=== PATIENT | female | born 1945 | race Caucasian/White ===

== ENCOUNTER 2019-09-05 15:03 | Inpatient (IN) | payer OTHER, MEDICARE ==
--- NOTE | 2019-09-05 15:17 | PDOC ---
Rapid Medical Evaluation Time Seen by Provider: 09/05/19 15:12 Medical Evaluation: 09/05/19 15:13 Pt presents to the ER for abnormal blood work. Was sent by Dr. Rocha for elevated liver enzymes. Denies pain. Admits to feeling weak and off balance. Dr. Rocha requesting phone call per patient to discuss case. She states she is requiring a walker since the weakness started. Exam: ambulatory with walker. No evidence of jaundice Orders: labs, IV Pt to proceed to the ER for further evaluation Discharge Disposition - Diagnosis Abnormal laboratory test result - Referrals - Patient Instructions - Post Discharge Activity
--- NOTE | 2019-09-05 15:56 | PDOC ---
History of Present Illness - General Chief Complaint: Abnormal Lab Results (Outside) Stated Complaint: SENT BY PCP/ ABN. LABS Time Seen by Provider: 09/05/19 15:12 - History of Present Illness Initial Comments: The pt is a 73F w/ a history of HTN, HLD, distant tobacco and EtOH abuse who presents for evaluation of 3 months of progressive weakness, weight loss, and transaminitis who presents for further evaluation and workup. She states that when the transaminitis was first discovered, initially it was thought to be medication related. Her medication regimen has been altered without resolution. She reports unintentional weight loss, decreased PO intake (decreased appetite) , generalized fatigue/weakness, frequent nausea. 09/05/19 17:00 Past History - Past Medical History Allergies/Adverse Reactions: Allergies Allergy/AdvReac Type Severity Reaction Status Date / Time olmesartan [From Benicar] AdvReac Itching Verified 09/05/19 15:13 Home Medications: Ambulatory Orders Aspirin 81 mg PO DAILY 09/05/19 Esomeprazole Magnesium [Nexium 24Hr] 40 mg PO DAILY 09/05/19 Metoprolol Succinate 100 mg PO DAILY 09/05/19 CVA: Yes (2013) COPD: No HTN: Yes Hypercholesterolemia: Yes - Surgical History Cholecystectomy: Yes - Psycho Social/Smoking Cessation Hx Smoking History: Former smoker Have you smoked in the past 12 months: No Information on smoking cessation initiated: No Hx Alcohol Use: No Drug/Substance Use Hx: No Review of Systems - Review of Systems Able to Perform ROS?: Yes Comments:: GENERAL/CONSTITUTIONAL: No fever or chills HEAD, EYES, EARS, NOSE AND THROAT: No change in vision. No change in hearing. No sore throat CARDIOVASCULAR: No chest pain or shortness of breath RESPIRATORY: Denies cough, hemoptysis GASTROINTESTINAL: No vomiting, diarrhea or constipation GENITOURINARY: No dysuria, frequency, or change in urination MUSCULOSKELETAL: No joint or muscle swelling or pain. No neck or back pain SKIN: No rash NEUROLOGIC: No headache, vertigo, loss of consciousness, or change in strength/ sensation ENDOCRINE: 20lbs unintentional weight loss HEMATOLOGIC/LYMPHATIC: No anemia, easy bleeding, or history of blood clots ALLERGIC/IMMUNOLOGIC: No hives or skin allergy 09/05/19 15:56 Is the patient limited Ukrainian proficient: No *Physical Exam - Vital Signs Last Vital Signs Temp Pulse Resp BP Pulse Ox 98.5 F 69 18 137/66 97 09/05/19 15:14 09/05/19 15:14 09/05/19 15:14 09/05/19 15:14 09/05/19 15:14 - Physical Exam GENERAL: Awake, alert, and oriented to person/place/time, in no acute distress HEAD: No signs of trauma, normocephalic, atraumatic EYES: PERRLA, EOMI, sclera anicteric, conjunctiva clear ENT: Hearing grossly normal, nares patent, oropharynx clear without exudates. No uvular deviation. Dry mucosa LUNGS: No distress, speaks in full sentences, clear to auscultation bilaterally HEART: Regular rate and rhythm, normal S1 and S2, no murmurs appreciated, peripheral pulses normal and equal bilaterally ABDOMEN: Soft, nontender, normoactive bowel sounds. No guarding, no rebound EXTREMITIES: Normal inspection, Normal range of motion, no edema. No clubbing or cyanosis NEUROLOGICAL: Cranial nerves II through XII grossly intact. Normal speech, normal gait, no focal sensorimotor deficits SKIN: Warm, Dry 09/05/19 15:56 ED Treatment Course - LABORATORY CBC & Chemistry Diagram: 09/05/19 15:42 09/05/19 15:42 - RADIOLOGY Radiograph Interpretation: CT CAP w/ IV contrast IMPRESSION: Status post cholecystectomy. There appears to be a subtle 0.7 cm opacity within the common bile duct at the level of the ampulla which may represent a calculus or polypoid lesion. Confirmation and further evaluation utilizing MRI/MRCP may be performed. Mild extrahepatic and intrahepatic biliary tract dilatation is noted. A 0.5 x 0.3 cm pancreatic hypodense focus is seen within the body adjacent to the tail possibly representing a cyst or incidental focal fatty deposition. MRI/ MRCP evaluation may also be performed in this regard. Probable 4 x 3 cm duodenal diverticulum. There is equivocal mild focal wall thickening along the left lateral aspect of the rectum. Correlate with colonoscopy. Diffuse hepatic steatosis. Colonic diverticulosis. Solitary 0.3 cm right lower lobe pulmonary nodule which is of doubtful clinical significance. Correlate with 3 month follow-up CT. Possible mild cardiomegaly. Minimal to mild chronic L3 vertebral body compression fracture. L1 vertebral body hemangioma. 09/05/19 23:48 Medical Decision Making - Medical Decision Making The pt is a 73F w/ a history of HTN, HLD, distant tobacco and EtOH abuse who presents for evaluation of 3 months of progressive weakness, weight loss, and transaminitis who presents for further evaluation and workup. Labs sent ECG Case discussed with Dr. Benoit, will obtain CT CAP IVF 09/05/19 17:49 ECG w/ NSR: HR 66; QTc 408; no axis deviation; TWI V2-V3; no DONNA; abn ecg Transaminitis noted No leukocytosis No anemia Lytes unremarkable No PATEL CT CAP w/ evidence of CBD/pancreatic nodules/lesions otherwise overall w/o acute pathology Plan for admission for further evaluation of transaminitis/investigation of possible malignancy Pt signed out to [facility] Admitting Discharge - Discharge Information Problems reviewed: Yes Clinical Impression/Diagnosis: Abnormal laboratory test result, Transaminitis Condition: Stable - Admission Yes - Follow up/Referral - Patient Discharge Instructions - Post Discharge Activity
[2019-09-05 16:05] LABS: BASO % 1.5 % (0-2.0); EOS % 3.4 % (0-4.5); HEMATOCRIT 42.5 % (32.4-45.2); HEMOGLOBIN 14.5 GM/dL (10.7-15.3); LYMPH % 21.7 % (8-40); MCHC 34.2 g/dl (32.0-36.0); MEAN CELL VOLUME 90.6 fl (80-96); MONO % 8.9 % (3.8-10.2); NEUT % 64.5 % (42.8-82.8); PLATELET COUNT 338 K/MM3 (134-434); RBC 4.69 M/mm3 (3.60-5.2); RDW 13.9 % (11.6-15.6); WHITE BLOOD COUNT 7.7 K/mm3 (4.0-10.0)
[2019-09-05 16:19] LABS: INR 1.43 (0.83-1.09); PROTHROMBIN TIME (PATIENT) 16.9 SEC (9.7-13.0)
[2019-09-05 16:43] LABS: ALBUMIN 3.1 g/dl (3.4-5.0); BILIRUBIN,TOTAL 3.2 mg/dL (0.2-1); BLOOD UREA NITROGEN 18.3 mg/dL (7-18); CALCIUM 9.1 mg/dL (8.5-10.1); CREATININE 0.9 mg/dL (0.55-1.3); POTASSIUM 3.7 mmol/L (3.5-5.1); TOT PROT 7.1 g/dl (6.4-8.2)
[2019-09-05] MEDS ORDERED: SODIUM CHLORIDE 0.9% 500 ML INFUS.BAG IV ONE (17:40)
--- NOTE | 2019-09-05 18:56 | PDOC ---
Documentation entered by Jillian Paniagua SCRIBE, acting as scribe for Vahe Wong MD. Vahe Wong MD: This documentation has been prepared by the Arcelia sims Torie, SCRIBE, under my direction and personally reviewed by me in its entirety. I confirm that the documentation accurately reflects all work, treatment, procedures, and medical decision making performed by me. Attending Attestation - Resident Resident Name: MyrtlebellaBonnieNey - ED Attending Attestation I have performed the following: I have examined & evaluated the patient, The case was reviewed & discussed with the resident, I agree w/resident's findings & plan, Exceptions are as noted - HPI HPI: 09/05/19 16:48 Patient is a 73 year old female with a significant medical history of HTN, HLD, stroke (2013) and is a chronic smoker who presents to the ED with general malaise. Patient fell two days ago and hit her head on the side of the TV. Patient claims she didnt lose consciousness, notes occasional nausea but no vomiting, and states that her urine has been brown for the past month. Patient remarked that she doesnt feel like herself. Patient was sent in by PCP for abnormal LFT. Denies: Social HX: Drank most of her life but reports not smoking or drinking since 2013 PCP: Frankie Rocha - Physicial Exam PE: 09/05/19 19:18 Vitals: Triage Vital signs reviewed General Appearance: No acute distress, well nourished well developed, Head: Atraumatic, Cardiac: Regular rate and rhythym, no murmurs, no rubs, no gallops, Lungs: Clear to auscultation bilateral, good air movement bilaterally, Abdomen: Soft, non distended, normal bowel sounds, non tender to palpation Extremities: Full range of motion to all extremities, no cyanosis, clubbing, or edema Skin: Warm and dry, no rashes or lesions, no rash, no petechiae Psych: Normal mood, normal affect - Medical Decision Making 09/05/19 19:18 73 years old with worsening LFTs and bilirubin cussed with Dr. Roper will CT chest abdomen pelvis and admit possible MRI and GI intervention tomorrow
[2019-09-05] MEDS: SODIUM CHLORIDE 0.45% 1,000 ML IV SCH (20:37)
--- NOTE | 2019-09-05 21:04 | HP ---
CHIEF COMPLAINT: brought in by PCP for abnormal blood work PCP:Dr. Rocha Gastroenterology: Dr. Benoit HISTORY OF PRESENT ILLNESS: 73 year old female with a significant medical history of HTN, HLD, stroke (2013 ) with reght sided weakness and a chronic smoker who presents to the ED with general malaise. As reported she fell two days ago and hit her head on the side of the TV . There was no loss of consciousness. She reports occasional nausea but no vomiting, and states that her urine has been brown for the past month. She denies abdominal pain, diarrhea, constipation, chest pain or shortness of breath. Patient reported she does not feel like her usual self. Patient was sent in by PCP for abnormal LFT's. She reported she was taken off her statin therapy a few weeks ago. ER course was notable for: (1)transaminitis/elevated bilrubin (total bilirubin 3.2, [id number],alk phos 673, INR 1.43, platelet 338) (2) CT scan of chest, abdomen and pelvis with a fatty liver, no masses, lymphadenopathy, 0.7cm opacity in common bile duct representing calculus versus polypoid lesion, mild common duct dilatation Recent Travel: no PAST MEDICAL HISTORY: hypertension hyperlipidemia CAV with right sided weakness PAST SURGICAL HISTORY: cholecystectomy Social History: Smoking:current smoker Alcohol:no Drugs: no Allergies [facility] Adverse Reaction (Verified 09/05/19 15:13) Itching HOME MEDICATIONS: Home Medications Medication Instructions Recorded Aspirin 81 mg PO DAILY 09/05/19 Esomeprazole Magnesium [Nexium 40 mg PO DAILY 09/05/19 24Hr] Metoprolol Succinate 100 mg PO DAILY 09/05/19 REVIEW OF SYSTEMS CONSTITUTIONAL: Absent: fever, chills, diaphoresis, generalized weakness, malaise, loss of appetite, weight change HEENT: Absent: rhinorrhea, nasal congestion, throat pain, throat swelling, difficulty swallowing, mouth swelling, ear pain, eye pain, visual changes CARDIOVASCULAR: Absent: chest pain, syncope, palpitations, irregular heart rate, lightheadedness , peripheral edema RESPIRATORY: Absent: cough, shortness of breath, dyspnea with exertion, orthopnea, wheezing, stridor, hemoptysis GASTROINTESTINAL: Absent: abdominal pain, abdominal distension, nausea, vomiting, diarrhea, constipation, melena, hematochezia GENITOURINARY: Absent: dysuria, frequency, urgency, hesitancy, hematuria, flank pain, genital pain MUSCULOSKELETAL: Absent: myalgia, arthralgia, joint swelling, back pain, neck pain SKIN: Absent: rash, itching, pallor HEMATOLOGIC/IMMUNOLOGIC: Absent: easy bleeding, easy bruising, lymphadenopathy, frequent infections ENDOCRINE: Absent: unexplained weight gain, unexplained weight loss, heat intolerance, cold intolerance NEUROLOGIC: Absent: headache, focal weakness or paresthesias, dizziness, unsteady gait, seizure, mental status changes, bladder or bowel incontinence PSYCHIATRIC: Absent: anxiety, depression, suicidal or homicidal ideation, hallucinations. PHYSICAL EXAMINATION Vital Signs - 24 hr 09/05/19 09/05/19 15:14 20:47 Temperature 98.5 F 98.1 F Pulse Rate 69 Pulse Rate [ 72 Apical] Respiratory 18 20 Rate Blood Pressure 137/66 Blood Pressure 130/70 [Right Arm] O2 Sat by Pulse 97 100 Oximetry (%) GENERAL: awake, alert,fully oriented, no acute distress HEAD: normal EYES: pupils equal, round and reactive to light EARS, NOSE, THROAT: ears normal, nares patent, oropharynx clear without exudates NECK: normal LUNGS: breath sounds clear to auscultation bilaterally no wheezes no crackles no accessory muscle use HEART: regular rate and rhythm normal S1 and S2 ABDOMEN: soft nontender on light palpation nondistended nonicteric MUSCULOSKELETAL: normal range of motion UPPER EXTREMITIES: 2+ pulses warm well-perfused no cyanosis LOWER EXTREMITIES: 2+ pulses warm well-perfused no pitting edema NEUROLOGICAL: normal speech right sided upper and lower weakness, ambulates with walker no facial droop or grimace PSYCHIATRIC: cooperative good eye contact appropriate mood and affect SKIN: warm dry normal turgor no rashes or lesions noted Laboratory Results - last 24 hr 09/05/19 09/05/19 09/05/19 15:42 15:42 15:42 WBC 7.7 RBC 4.69 Hgb 14.5 Hct 42.5 MCV 90.6 MCH 31.0 MCHC 34.2 RDW 13.9 Plt Count 338 MPV 10.0 Absolute Neuts (auto) 4.9 Neutrophils % 64.5 Lymphocytes % 21.7 Monocytes % 8.9 Eosinophils % 3.4 Basophils % 1.5 Nucleated RBC % 0 PT with INR 16.90 H INR 1.43 H Sodium 141 Potassium 3.7 Chloride 113 H Carbon Dioxide 19 L Anion Gap 9 BUN 18.3 H Creatinine 0.9 Est GFR (CKD-EPI)AfAm 74.56 Est GFR (CKD-EPI)NonAf 64.33 Random Glucose 90 Calcium 9.1 Total Bilirubin 3.2 H AST 124 H ALT 160 H Alkaline Phosphatase 673 H Total Protein 7.1 Albumin 3.1 L Urine Color Urine Appearance Urine pH Ur Specific [place] Urine Protein Urine Glucose (UA) Urine Ketones Urine Blood Urine Nitrite Urine Bilirubin Urine Urobilinogen Ur Leukocyte Esterase Urine WBC (Auto) Urine RBC (Auto) Urine Casts (Auto) U Pathogenic Cast Auto U Epithel Cells (Auto) U Sm Round Cell (Auto) Urine Crystals (Auto) Urine Bacteria (Auto) Urine Yeast (Auto) 09/05/19 18:36 WBC RBC Hgb Hct MCV MCH MCHC RDW Plt Count MPV Absolute Neuts (auto) Neutrophils % Lymphocytes % Monocytes % Eosinophils % Basophils % Nucleated RBC % PT with INR INR Sodium Potassium Chloride Carbon Dioxide Anion Gap BUN Creatinine Est GFR (CKD-EPI)AfAm Est GFR (CKD-EPI)NonAf Random Glucose Calcium Total Bilirubin AST ALT Alkaline Phosphatase Total Protein Albumin Urine Color Cancelled Urine Appearance Cancelled Urine pH Cancelled Ur Specific [place] Cancelled Urine Protein Cancelled Urine Glucose (UA) Cancelled Urine Ketones Cancelled Urine Blood Cancelled Urine Nitrite Cancelled Urine Bilirubin Cancelled Urine Urobilinogen Cancelled Ur Leukocyte Esterase Cancelled Urine WBC (Auto) Cancelled Urine RBC (Auto) Cancelled Urine Casts (Auto) Cancelled U Pathogenic Cast Auto Cancelled U Epithel Cells (Auto) Cancelled U Sm Round Cell (Auto) Cancelled Urine Crystals (Auto) Cancelled Urine Bacteria (Auto) Cancelled Urine Yeast (Auto) Cancelled ASSESSMENT/PLAN: Mrs. Casas is a 73 year old female with a significant medical history of HTN , HLD, stroke (2013) with right sided weakness and ongoing tobacco use smoker who presents with general malaise and nausea. She was found to have transmintis and elevated bilirubin. She is being evaluated for further medical management and GI evaluation. #1 Transaminitis/Elevated Bilirubin symptomatic with nausea and malaise,no leukocytosis, afebrile, nonicteric, labs notable for total bilirubin 3.2, ast 124, alt 160, alk phos 673, platelets 338, INR 1.43. CT scan of chest, abdomen and pelvis with fatty liver, no masses or lymphadenopathy, 0.7cm opacity in common bile duct representing calculus versus polypoid lesion, mild common bile duct dilatation. --hepatitis panel pending , check amylase level --GI consulted- Dr. Benoit --Avoid Tylenol and statin therapy --Will keep patient NPO in anticipation for MRCP --IVF NS @75cc/hr #2 Hypertension controlled --continue with metoprolol #3 Hyperlipidemia statin on hold in setting of #1 #4 History of CVA --continue asa --statin on hold in setting of #1 FEN IV fluids NS @ 75cc/hr monitor electrolytes closely, daily BMP NPO DVT Prophylaxsis SCD's, TEDS, lovenox 40 mg daily Visit type - Emergency Visit Emergency Visit: Yes ED Registration Date: 09/05/19 Care time: The patient presented to the Emergency Department on the above date and was hospitalized for further evaluation of their emergent condition. - New Patient This patient is new to me today: Yes Date on this admission: 09/05/19 - Critical Care Critical Care patient: No
[2019-09-06 01:39] LABS: URINE APPEARANCE CLEAR; URINE BILIRUBIN SMALL (NEGATIVE); URINE COLOR DK YELLOW; URINE GLUCOSE (UA) NEGATIVE (NEGATIVE); URINE KETONE NEGATIVE (NEGATIVE); URINE PROTEIN NEGATIVE (NEGATIVE); URINE UROBILINOGEN 0.2 mg/dL (0.2-1.0)
[2019-09-06 01:40] LABS: URINE LEUK ESTERASE NEGATIVE (NEGATIVE); URINE NITRITE NEGATIVE (NEGATIVE)
[2019-09-06] MEDS: SODIUM CHLORIDE 0.45% 1,000 ML IV SCH (05:26)
--- NOTE | 2019-09-06 08:02 | CON.GI ---
Consult Consult Specialty:: GI Referred by:: KRANTHI Buchanan Reason for Consultation:: Transaminitis - History of Present Illness History of Present Illness: Patient is a 73 y/o female with past medical history of HTN, HLD, Stroke (2013) with residual R sided weakness, chronic smoker and past history of ETOH use. Consult was placed for labs showing transaminitis. Labs from 09/05/19 shows AST 124, ALT 160, Alk Phos 673. She has been followed in the office for elevated LFTs since 05/2019. Since 06/2019 LFTs having been showing uptrend. In May labs show GGT 1396 which have decreased to 578 in 08/23/19. Chronic liver work up from 05/2019 showed liver fibrosis 0.59 and liver steatosis 0.94. She says she has been having intermittent episodes of nausea with poor appetite and has experienced a total of 20lb weight loss over the past couple of months. Patient says she has never had a colonoscopy or EGD done before. Denies vomiting, abdominal pain, diarrhea, constipation, rectal bleeding, melena. CTAP shows s/p cholecystectomy, subtle 0.7cm opacity within the CBD at the level of ampulla which may represent a calculus or polypoid lesion, 0.5x0.3 cm pancreatic hypodense focus seen within body adjacent to the tail possibly representing a cyst or incidental focal fatty deposition, probable 4 x 3cm duodenal diverticulum, equivocal mild focal wall thickening along left lateral aspect of the rectum, diffuse hepatic steatosis, 0.3cm RLL pulmonary nodule. - History Source History Provided By: Patient Limitations to Obtaining History: No Limitations - Past Medical History [employer]: Yes: CVA Cardio/Vascular: Yes: HTN, Hyperlipdemia - Past Surgical History Past Surgical History: Yes: Cholecystectomy - Alcohol/Substance Use Hx Alcohol Use: No - Smoking History Smoking history: Former smoker Have you smoked in the past 12 months: No - Social History Usual Living Arrangement: With Spouse History of Recent Travel: No Home Medications - Allergies Allergies/Adverse Reactions: Allergies Allergy/AdvReac Type Severity Reaction Status Date / Time olmesartan [From Benicar] AdvReac Itching Verified 09/05/19 15:13 - Home Medications Home Medications: Ambulatory Orders Aspirin 81 mg PO DAILY 09/05/19 Esomeprazole Magnesium [Nexium 24Hr] 40 mg PO DAILY 09/05/19 Metoprolol Succinate 100 mg PO DAILY 09/05/19 Review of Systems - Review of Systems Constitutional: reports: Loss of Appetite, Unintentional Wgt. Loss, Weakness Eyes: reports: No Symptoms HENT: reports: No Symptoms Neck: reports: No Symptoms Cardiovascular: reports: No Symptoms Respiratory: reports: No Symptoms Gastrointestinal: reports: Nausea Genitourinary: reports: No Symptoms Breasts: reports: No Symptoms Reported Musculoskeletal: reports: No Symptoms Integumentary: reports: No Symptoms Neurological: reports: No Symptoms Endocrine: reports: No Symptoms Hematology/Lymphatic: reports: No Symptoms Psychiatric: reports: No Symptoms Physical Exam-GI Vital Signs: Vital Signs Temperature 98.1 F 09/05/19 20:47 Pulse Rate 65 09/06/19 01:30 Respiratory Rate 18 09/06/19 01:30 Blood Pressure 142/74 09/06/19 01:30 O2 Sat by Pulse Oximetry (%) 98 09/06/19 01:30 Constitutional: Yes: No Distress, Calm, Thin Eyes: Yes: Conjunctiva Clear HENT: Yes: Atraumatic Cardiovascular: Yes: Regular Rate and Rhythm Respiratory: Yes: Regular, CTA Bilaterally Gastrointestinal Inspection: Yes: WNL. No: Ascites, Distention, Hernia, Scars, Other ...Auscultate: Yes: Normoactive Bowel Sounds. No: Hyperactive Bowel Sounds, Hypoactive Bowel Sounds, No Bowel Sounds, Other ...Palpate: Yes: Soft. No: Firm/Rigid, Guarding, Hepatomegaly, Mass, Pulsatile Mass, Splenomegaly, Tenderness, Tenderness, Epigastium, Tenderness, Rebound, Other ...Percussion: Yes: Tympanitic. No: Dullness, Fluid Wave, Other Neurological: Yes: Alert, Oriented Psychiatric: Yes: Alert, Oriented Labs: CBC, BMP 09/05/19 15:42 09/05/19 15:42 INR, PTT INR 1.43 (0.83-1.09) H 09/05/19 15:42 Active Medications Generic Name Dose Route Start Last Admin Trade Name Freq PRN Reason Stop Dose Admin Aspirin 81 mg 09/06/19 10:00 Asa - PO DAILY [facility] Enoxaparin Sodium 40 mg 09/06/19 10:00 Lovenox - SQ DAILY [facility] Sodium Chloride 1,000 mls @ 75 mls/hr 09/05/19 20:30 09/06/19 05:26 1/2 Normal Saline IV 75 mls/hr ASDIR SHANNON Administration Metoprolol Succinate 100 mg 09/06/19 10:00 Toprol Xl - PO DAILY SHANNON Pantoprazole Sodium 40 mg 09/06/19 10:00 Protonix - PO DAILY SHANNON Problem List - Problems (1) Unintentional weight loss Assessment/Plan: >CEA, CA 19-9, CA 125 >CTAP results reviewed >B complex, Folic Acid, Cyproheptadine Code(s): R63.4 - ABNORMAL WEIGHT LOSS (2) Transaminitis Assessment/Plan: >Patient is pending Abdominal MRCP >AST 124, ALT 160, Alk Phos 673 >monitor LFTs daily >pulmonary and cardiology consult needed if procedure need to be performed >CTAP reviewed Code(s): R74.0 - NONSPEC ELEV OF LEVELS OF TRANSAMNS & LACTIC ACID DEHYDRGNSE
[2019-09-06 08:33] VITALS: BMI 19.2
[2019-09-06 09:16] LABS: HEMATOCRIT 38.1 % (32.4-45.2); HEMOGLOBIN 12.8 GM/dL (10.7-15.3); MCH 30.4 pg (25.7-33.7); MCHC 33.6 g/dl (32.0-36.0); MEAN CELL VOLUME 90.5 fl (80-96); MEAN PLT VOLUME 9.8 fl (7.5-11.1); PLATELET COUNT 247 K/MM3 (134-434); RBC 4.21 M/mm3 (3.60-5.2); RDW 13.6 % (11.6-15.6); WHITE BLOOD COUNT 4.9 K/mm3 (4.0-10.0)
[2019-09-06 09:54] LABS: ALBUMIN 2.8 g/dl (3.4-5.0); BILIRUBIN,TOTAL 3.2 mg/dL (0.2-1); BLOOD UREA NITROGEN 13.6 mg/dL (7-18); CALCIUM 8.6 mg/dL (8.5-10.1); CREATININE 0.8 mg/dL (0.55-1.3); POTASSIUM 3.6 mmol/L (3.5-5.1); TOT PROT 6.2 g/dl (6.4-8.2)
--- NOTE | 2019-09-06 10:13 | PN ---
Progress Note, Physician Chief Complaint: AWAKE ALERT EVENTS AND NOTES REVIEWED PATIENT C/O CHRONIC ABDOMINAL PAIN WORSE NPO FOR MRI ABD - Current Medication List Current Medications: Active Medications Aspirin (Asa -) 81 mg PO DAILY [facility] Cyproheptadine HCl (Periactin -) 4 mg PO TIDAC [facility] Enoxaparin Sodium (Lovenox -) 40 mg SQ DAILY [facility] Folic Acid (Folic Acid -) 1 mg PO DAILY [facility] Sodium Chloride (1/2 Normal Saline) 1,000 mls @ 75 mls/hr IV ASDIR SHANNON Last Admin: 09/06/19 05:26 Dose: 75 mls/hr Metoprolol Succinate (Toprol Xl -) 100 mg PO DAILY [facility] Multivitamins (Total B With C -) 1 each PO DAILY [facility] Pantoprazole Sodium (Protonix -) 40 mg PO DAILY [facility] - Objective Vital Signs: Vital Signs Temperature 97.5 F L 09/06/19 05:00 Pulse Rate 64 09/06/19 05:00 Respiratory Rate 18 09/06/19 05:00 Blood Pressure 141/79 09/06/19 05:00 O2 Sat by Pulse Oximetry (%) 98 09/06/19 01:30 Constitutional: Yes: Mild Distress Cardiovascular: Yes: Regular Rate and Rhythm Respiratory: Yes: WNL Gastrointestinal: Yes: Soft Genitourinary: Yes: WNL Musculoskeletal: Yes: Muscle Weakness Integumentary: Yes: WNL Wound/Incision: Yes: Clean/Dry Neurological: Yes: Unsteady Gait ...Motor Strength: LLE, RLE Labs: CBC, BMP 09/06/19 08:30 09/06/19 08:30 INR, PTT INR 1.43 (0.83-1.09) H 09/05/19 15:42 Problem List - Problems (1) Unsteady gait Code(s): R26.81 - UNSTEADINESS ON FEET (2) Abnormal laboratory test result Code(s): R89.9 - UNSP ABNORMAL FINDING IN SPECIMENS FROM OTH ORG/TISS (3) Transaminitis Code(s): R74.0 - NONSPEC ELEV OF LEVELS OF TRANSAMNS & LACTIC ACID DEHYDRGNSE (4) Unintentional weight loss Code(s): R63.4 - ABNORMAL WEIGHT LOSS Assessment/Plan MRI ABD PENDING GI F/U APPRECIATED NPO FOR MRI IVF PAIN CONTROL OOB TO CHAIR DVT PROPHYLAXIS PPI FOR ABD PAIN ZOFRAN PRN NEUROLOGY EVAL UNSTEADY GAIT
[2019-09-06] MEDS ORDERED: PT OWN MED DRAWER 7, Y5N ONE ×3 (10:35→17:38)
--- NOTE | 2019-09-06 10:42 | EKG ---
Test Reason : Blood Pressure : / mmHG Vent. Rate : 066 BPM Atrial Rate : 066 BPM P-R Int : 142 ms QRS Dur : 078 ms QT Int : 390 ms P-R-T Axes : 046 055 040 degrees QTc Int : 408 ms NORMAL SINUS RHYTHM ABNORMAL ECG WHEN COMPARED WITH ECG OF 25-DEC-2008 16:06, ST ELEVATION NOW PRESENT IN INFERIOR LEADS T WAVE INVERSION NOW EVIDENT IN ANTERIOR LEADS Confirmed by Rocael Mccain MD ([id number]) on 09/06/2019 10:42:16 AM Referred By: Confirmed By:Rocael Mccain MD
[2019-09-06] MEDS: ENOXAPARIN NA (PORCINE) 40 MG/0.4 ML DISP.SYRIN SQ SCH (10:49)
[2019-09-06] MEDS: PANTOPRAZOLE 40 MG TABLET PO SCH (10:49)
[2019-09-06] MEDS: FOLIC ACID 1 MG TABLET (FP) PO SCH (10:49)
[2019-09-06] MEDS: ASPIRIN 81 MG CHEWABLE TABLETS PO SCH (10:50)
[2019-09-06] MEDS: VITAMIN B COMPLEX W/C COMBO TABLET (FP) PO SCH (12:10)
[2019-09-06] MEDS: CYPROHEPTADINE HCL 4 MG TABLET PO SCH ×2 (12:11→17:41)
[2019-09-06] MEDS: NIFEdipine E.R. 30 MG TABLET PO SCH (22:32)
[2019-09-07] MEDS ORDERED: PT OWN MED DRAWER 7, Y5N ONE ×2 (06:41→10:48)
[2019-09-07] MEDS: SODIUM CHLORIDE 0.45% 1,000 ML IV SCH ×3 (06:43→17:31)
[2019-09-07] MEDS: CYPROHEPTADINE HCL 4 MG TABLET PO SCH ×3 (06:44→17:19)
--- NOTE | 2019-09-07 07:53 | PN.GI ---
GI Progress Note Subjective: Patient had Abdominal MRI done yesterday, results are pending. Labs from yesterday morning are showing slight downtrend in LFTs. Denies nausea, vomiting , abdominal pain, diarrhea, rectal bleeding, melena. - Objective Vital Signs: Vital Signs Temperature 98.4 F 09/07/19 06:00 Pulse Rate 63 09/07/19 06:00 Respiratory Rate 18 09/07/19 06:00 Blood Pressure 139/61 09/07/19 06:00 O2 Sat by Pulse Oximetry (%) 98 09/06/19 21:00 Constitutional: No Distress, Calm Eyes: Yes: Conjunctiva Clear HENT: Yes: Atraumatic Cardiovascular: Yes: Regular Rate and Rhythm Respiratory: Yes: Regular, CTA Bilaterally Gastrointestinal Inspection: Yes: WNL. No: Ascites, Distention, Hernia, Scars, Other ...Auscultate: Yes: Normoactive Bowel Sounds. No: Hyperactive Bowel Sounds, Hypoactive Bowel Sounds, No Bowel Sounds, Other ...Palpate: Yes: Soft. No: Firm/Rigid, Guarding, Hepatomegaly, Mass, Pulsatile Mass, Splenomegaly, Tenderness, Tenderness, Epigastium, Tenderness, Rebound, Other ...Percussion: Yes: Tympanitic. No: Dullness, Fluid Wave, Other Neurological: Yes: Alert, Oriented Psychiatric: Yes: Alert, Oriented Labs: CBC, BMP 09/06/19 08:30 09/06/19 08:30 INR, PTT INR 1.43 (0.83-1.09) H 09/05/19 15:42 Home Medication List Medication Instructions Recorded Confirmed Type Aspirin 81 mg PO DAILY 09/05/19 09/05/19 History Esomeprazole Magnesium [Nexium 40 mg PO DAILY 09/05/19 09/05/19 History 24Hr] Metoprolol Succinate 100 mg PO DAILY 09/05/19 09/05/19 History Colesevelam HCl 3.75 gm PO 09/06/19 History Nifedipine ER [Procardia Xl -] 30 mg PO 09/06/19 History Active Medications Generic Name Dose Route Start Last Admin Trade Name Freq PRN Reason Stop Dose Admin Aspirin 81 mg 09/06/19 10:00 09/06/19 10:50 Asa - PO 81 mg DAILY SHANNON Administration Cyproheptadine HCl 4 mg 09/06/19 11:00 09/07/19 06:44 Periactin - PO 4 mg TIDAC SHANNON Administration Enoxaparin Sodium 40 mg 09/06/19 10:00 09/06/19 10:49 Lovenox - SQ 40 mg DAILY SHANNON Administration Folic Acid 1 mg 09/06/19 10:00 09/06/19 10:49 Folic Acid - PO 1 mg DAILY SHANNON Administration Sodium Chloride 1,000 mls @ 75 mls/hr 09/05/19 20:30 09/07/19 06:43 1/2 Normal Saline IV Not Given ASDIR SHANNON Metoprolol Succinate 100 mg 09/06/19 10:00 09/06/19 10:49 Toprol Xl - PO 100 mg DAILY SHANNON Administration Multivitamins 1 each 09/06/19 10:00 09/06/19 12:10 Total B With C - PO 1 each DAILY SHANNON Administration Nifedipine 30 mg 09/06/19 22:00 09/06/19 22:32 Procardia Xl - PO 30 mg BID SHANNON Administration Pantoprazole Sodium 40 mg 09/06/19 10:00 09/06/19 10:49 Protonix - PO 40 mg DAILY SHANNON Administration Problem List - Problems (1) Unintentional weight loss Assessment/Plan: >CEA, CA 19-9, CA 125 results pending >CTAP results reviewed >B complex, Folic Acid, Cyproheptadine Code(s): R63.4 - ABNORMAL WEIGHT LOSS (2) Transaminitis Assessment/Plan: >Abdominal MRCP results pending >AST 106, ALT 138, Alk Phos 611 >monitor LFTs daily >pulmonary and cardiology consult needed if procedure need to be performed >CTAP reviewed Code(s): R74.0 - NONSPEC ELEV OF LEVELS OF TRANSAMNS & LACTIC ACID DEHYDRGNSE
--- NOTE | 2019-09-07 08:50 | PN ---
Progress Note, Physician - Current Medication List Current Medications: Active Medications Aspirin (Asa -) 81 mg PO DAILY [facility] Last Admin: 09/06/19 10:50 Dose: 81 mg Cyproheptadine HCl (Periactin -) 4 mg PO TIDAC [facility] Last Admin: 09/07/19 06:44 Dose: 4 mg Enoxaparin Sodium (Lovenox -) 40 mg SQ DAILY [facility] Last Admin: 09/06/19 10:49 Dose: 40 mg Folic Acid (Folic Acid -) 1 mg PO DAILY [facility] Last Admin: 09/06/19 10:49 Dose: 1 mg Sodium Chloride (1/2 Normal Saline) 1,000 mls @ 75 mls/hr IV ASDIR [facility] Last Admin: 09/07/19 06:43 Dose: Not Given Metoprolol Succinate (Toprol Xl -) 100 mg PO DAILY [facility] Last Admin: 09/06/19 10:49 Dose: 100 mg Multivitamins (Total B With C -) 1 each PO DAILY [facility] Last Admin: 09/06/19 12:10 Dose: 1 each Nifedipine (Procardia Xl -) 30 mg PO BID [facility] Last Admin: 09/06/19 22:32 Dose: 30 mg Pantoprazole Sodium (Protonix -) 40 mg PO DAILY [facility] Last Admin: 09/06/19 10:49 Dose: 40 mg - Objective Vital Signs: Vital Signs Temperature 98.4 F 09/07/19 06:00 Pulse Rate 63 09/07/19 06:00 Respiratory Rate 18 09/07/19 06:00 Blood Pressure 139/61 09/07/19 06:00 O2 Sat by Pulse Oximetry (%) 98 09/06/19 21:00 Cardiovascular: Yes: Regular Rate and Rhythm Respiratory: Yes: Regular, CTA Bilaterally Gastrointestinal: Yes: Normal Bowel Sounds, Soft Labs: CBC, BMP 09/06/19 08:30 09/06/19 08:30 INR, PTT INR 1.43 (0.83-1.09) H 09/05/19 15:42 Problem List - Problems (1) Transaminitis Assessment/Plan: r/p obstructive lesion vs autoimmune gi on board mri/mrcp results Code(s): R74.0 - NONSPEC ELEV OF LEVELS OF TRANSAMNS & LACTIC ACID DEHYDRGNSE (2) CVA (cerebral vascular accident) Assessment/Plan: old monitor on current meds off statin due to lft Code(s): I63.9 - CEREBRAL INFARCTION, UNSPECIFIED (3) HTN (hypertension) Assessment/Plan: controlled Code(s): I10 - ESSENTIAL (PRIMARY) HYPERTENSION (4) COPD (chronic obstructive pulmonary disease) Assessment/Plan: nebs pulm Code(s): J44.9 - CHRONIC OBSTRUCTIVE PULMONARY DISEASE, UNSPECIFIED
[2019-09-07] MEDS: ASPIRIN 81 MG CHEWABLE TABLETS PO SCH (11:02)
[2019-09-07] MEDS: NIFEdipine E.R. 30 MG TABLET PO SCH ×2 (11:02→22:10)
[2019-09-07] MEDS: FOLIC ACID 1 MG TABLET (FP) PO SCH (11:02)
[2019-09-07] MEDS: PANTOPRAZOLE 40 MG TABLET PO SCH (11:03)
[2019-09-07] MEDS: VITAMIN B COMPLEX W/C COMBO TABLET (FP) PO SCH (11:03)
[2019-09-07] MEDS: ENOXAPARIN NA (PORCINE) 40 MG/0.4 ML DISP.SYRIN SQ SCH (11:03)
--- NOTE | 2019-09-07 11:09 | CONSULT ---
Consult - text type - Consultation Consultation Note: NEUROLOGY CONSULTATION is greatly appreciated: This 73 yo RH woman with h/o HTN, Chol is on: Aspirin 81; Periactin; Lovenox; Metoprolol 100; and, Pantoprazole. S/p Left CVA in 2013 with residual right sided weakness although strength and speech improved markedly in PT at [facility]. Long history of heavy beer drinking and smoking which were D/C'ed after CVA in 2013. Has used a walker at home since that time. Now admitted after two weeks of increasing "weakness" and unsteadiness and 2 days after a fall at home with elevated LFT's. Just resumed out patient P.T. CT of Abd: Diffuse fatty infiltration of the liver. Labs sig for Elevated Transaminases and Alk Phos (673 mg%) CA 19-9 = 66 RE: No evidence of external head trauma No bruits. Cor reg NEURO: Awake, alert, cooperative. O x 3. Recalls 2 of 3 at 3 mins Fluent speech. No frontal release findings CN II-XII: normal without Nystagmus. No facial. Sl. reduced tongue MICHELLE's. Gag OK Motor: Mild right drift. Decreased MICHELLE's right hand. No asterixis or myoclonus Increased reflexes diffusely on the right. Right Babinski Coord: Min FTN and HTS dystaxia Sensory: Normal. Romberg Neg Gait: wide-based. Shuffling. 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 Thank you very much, Cody Perez MD
--- NOTE | 2019-09-07 15:51 | CON.CARD ---
Consult Consult Specialty:: Cardiology Reason for Consultation:: PreOp Evaluation - History of Present Illness Chief Complaint: LFT abnormalities History of Present Illness: This is a 73 year old female with a PMH of HTN, HLD, CVA in 2013 with residual right sided weakness, and smoking. As reported she fell two days ago and hit her head on the side of the TV . There was no loss of consciousness. She reports occasional nausea but no vomiting, and states that her urine has been brown for the past month and is noted to have elevated LFT's. No cardiac symptoms. EKG NSR at 66 BPM with normal intervals, normal axis, and NSSTTW changes. - Past Medical History MDS COORDINATOR: Yes: CVA Cardio/Vascular: Yes: HTN, Hyperlipdemia - Past Surgical History Past Surgical History: Yes: Cholecystectomy - Alcohol/Substance Use Hx Alcohol Use: No - Smoking History Smoking history: Former smoker Have you smoked in the past 12 months: No - Social History Usual Living Arrangement: With Spouse History of Recent Travel: No Home Medications - Allergies Allergies/Adverse Reactions: Allergies Allergy/AdvReac Type Severity Reaction Status Date / Time olmesartan [From Benicar] AdvReac Itching Verified 09/05/19 15:13 - Home Medications Home Medications: Ambulatory Orders Aspirin 81 mg PO DAILY 09/05/19 Esomeprazole Magnesium [Nexium 24Hr] 40 mg PO DAILY 09/05/19 Metoprolol Succinate 100 mg PO DAILY 09/05/19 Colesevelam HCl 3.75 gm PO 09/06/19 Nifedipine ER [Procardia Xl -] 30 mg PO 09/06/19 Vital Signs: Vital Signs Temperature 97.6 F 09/07/19 10:45 Pulse Rate 74 09/07/19 10:45 Respiratory Rate 18 09/07/19 10:45 Blood Pressure 116/62 09/07/19 10:45 O2 Sat by Pulse Oximetry (%) 98 09/06/19 21:00 Constitutional: Yes: No Distress Eyes: Yes: WNL HENT: Yes: WNL Neck: Yes: WNL Respiratory: Yes: CTA Bilaterally Gastrointestinal: Yes: Soft Cardiovascular: Yes: Regular Rate and Rhythm Heart Sounds: Yes: S1, S2 Extremities: Yes: WNL Edema: No Neurological: Yes: Alert, Oriented - Other Data Labs, Other Data: CBC, BMP 09/06/19 08:30 09/06/19 08:30 INR, PTT INR 1.43 (0.83-1.09) H 09/05/19 15:42 Assessment/Plan 73 year old female with a PMH of HTN, HLD, CVA in 2013 with residual right sided weakness, and smoking. As reported she fell two days ago and hit her head on the side of the TV . There was no loss of consciousness. She reports occasional nausea but no vomiting, and states that her urine has been brown for the past month and is noted to have elevated LFT's. No cardiac symptoms. Hemodynamically stable EKG NSR at 66 BPM with normal intervals, normal axis, and NSSTTW changes. HTN Nifedipine (Procardia Xl -) 30 mg PO BID Metoprolol Succinate (Toprol Xl -) 100 mg PO DAILY Should an invasive procedure be needed: There are no cardiac contraindications to surgery.
[2019-09-08] MEDS: SODIUM CHLORIDE 0.45% 1,000 ML IV SCH (01:12)
[2019-09-08] MEDS: CYPROHEPTADINE HCL 4 MG TABLET PO SCH ×2 (06:35→10:40)
[2019-09-08] MEDS: ASPIRIN 81 MG CHEWABLE TABLETS PO SCH (09:09)
[2019-09-08] MEDS: ENOXAPARIN NA (PORCINE) 40 MG/0.4 ML DISP.SYRIN SQ SCH (09:09)
[2019-09-08] MEDS: VITAMIN B COMPLEX W/C COMBO TABLET (FP) PO SCH (09:09)
[2019-09-08] MEDS: FOLIC ACID 1 MG TABLET (FP) PO SCH (09:09)
[2019-09-08] MEDS: PANTOPRAZOLE 40 MG TABLET PO SCH (09:10)
[2019-09-08] MEDS: NIFEdipine E.R. 30 MG TABLET PO SCH (09:10)
[2019-09-08 11:18] VITALS: BP 125/64; PULSE 72; TEMP 97.6
== END 2019-09-08 14:05 | disposition short-term general hospital (02) | DRG 375 ==
LOC: JER 15:03 → SUPCPDRO 15:03 → JERBED 19:32 → J5S 09-06 04:38
PROVIDERS: ADMIT Internal Medicine; ATTEND Family Medicine
DX: D49.0 Neoplasm of unspecified behavior of digestive system (principal); K72.90 Hepatic failure, unspecified without coma; G81.91 Hemiplegia, unspecified affecting right dominant side; Q61.02 Congenital multiple renal cysts; R74.0 Nonspecific elevation of levels of transaminase and lactic acid dehydrogenase [LDH]; I10 Essential (primary) hypertension; R53.81 Other malaise; K74.0 Hepatic fibrosis; K76.0 Fatty (change of) liver, not elsewhere classified; E78.5 Hyperlipidemia, unspecified; F10.10 Alcohol abuse, uncomplicated; R11.0 Nausea; R63.4 Abnormal weight loss; F17.210 Nicotine dependence, cigarettes, uncomplicated; Z86.73 Personal history of transient ischemic attack (TIA), and cerebral infarction without residual deficits
CPT/HCPCS: 36415; 70551-TC; 71260-TC; 74177-TC; 74182-TC; 80053; 80074; 81003; 82140; 82150; 82378; 82607; 84443; 85025; 85027; 85610; 86301; 86304; 87086; 87186; 93005; 93010; 97116-GP; 97161-GP; 99285-25; A9579; Q9967